=== PATIENT | female | born 2000 | race African-American/Black ===

== ENCOUNTER 2022-06-28 09:58 | Emergency (ER) | payer OTHER, SELFPAY | END 2022-06-28 10:38 | disposition home or self-care (01) | LOC: NAV ERS 09:58 | DX: R19.7 Diarrhea, unspecified (principal) | CPT/HCPCS: 99283 ==

== ENCOUNTER 2024-01-22 15:50 | Emergency (ER) | payer BC | END 2024-01-22 16:24 | disposition home or self-care (01) | LOC: NAV ERS 15:50 | DX: A09 Infectious gastroenteritis and colitis, unspecified (principal) | CPT/HCPCS: 99283 ==

== ENCOUNTER 2025-03-06 03:34 | Emergency (ER) | payer BC, SELFPAY ==
[2025-03-06 04:01] LABS: #Basophils 0.2 thou/uL (0.0-0.2); #Eosinophils 0.1 thou/uL (0.0-0.7); #Lymphocytes 2.3 thou/uL (1.20-3.40); #Monocytes 0.9 thou/uL (0.11-0.59); #Neutrophils 6.7 thou/uL (1.40-6.50); %Basophils 1.6 % (0.0-1.0); %Eosinophils 0.8 % (0.0-10.0); %Lymphocytes 22.5 % (21.0-51.0); %Monocytes 9.0 % (0.0-10.0); %Neutrophils 66.1 % (42.0-75.0); Hematocrit 47.3 % (36.0-47.0); Hemoglobin 16.5 g/dL (12.0-16.0); Mean Corpuscular Hemoglobin 29.3 pg (27.0-31.0); Mean Corpuscular Volume 84.0 fl (78.0-98.0); Platelet Count 277 10x3/uL (130-400); Red Blood Cell (RBC) Count 5.62 mill/uL (4.20-5.40); White Blood Cell (WBC) Count 10.2 10x3/uL (4.8-10.8)
[2025-03-06] MEDS ORDERED: Mag-Al Plus 1200/1200/120 MG (30 mL) UDCUP ONE (04:09)
[2025-03-06] MEDS ORDERED: Lidocaine Viscous Sol 2% 15 ml UD Cup ONE (04:09)
[2025-03-06] MEDS ORDERED: INSULIN REGULAR IN 0.9 % NACL 100 ML ONE (04:11)
[2025-03-06 04:17] LABS: Bicarbonate (HCO3v) 5.8 mmol/L (22.0-28.0); CO2 Tension (PvCO2) 18.6 mmHg (42.0-51.0); Calcium, Ionized 1.07 mmol/L (1.15-1.33); Chloride 114 mmol/L (98-107); Hemoglobin - Calc 15.6 g/dL (12.0-16.0); Potassium 4.4 mmol/L (3.5-5.1); Sodium 126 mmol/L (138-145); T. Carbon Dioxide 6.4 mmol/L (22.0-28.0); vO2 Saturation-calc 91.6 % (60.0-85.0)
[2025-03-06 04:27] LABS: ALT (SGPT) 17 U/L (Less than 34); AST (SGOT) 28 U/L (11-34); Albumin 5.1 g/dL (3.1-4.5); Alkaline Phosphatase 80 U/L (40-110); BUN (Urea Nitrogen) 13 mg/dL (7.0-18.7); Bilirubin, Total 0.4 mg/dL (0.3-1.2); Calc. Creatinine Clearance 0 mL/min (70-130); Calcium 9.0 mg/dL (7.8-10.44); Chloride 101 mmol/L (98-107); Globulin 4.2 g/dL (2.4-3.5); Sodium 134 mmol/L (136-145)
[2025-03-06 04:31] LABS: Carbon Dioxide Less than 16 mmol/L (22-29)
[2025-03-06 04:33] LABS: Glucose 531 mg/dL (70-105); Potassium 5.2 mmol/L (3.5-5.1)
[2025-03-06 04:41] LABS: Bacteria/HPF None Seen HPF (None Seen); CAUTI Indications for Culture Dysuria,urgency,freq; Glucose, Urine (Dipstick) 500 mg/dL (Negative); Leukocyte Trace (Negative); Protein, Urine (Dipstick) 100 mg/dL (Neg-Trace); RBC/HPF None Seen HPF (0-3); Specific Gravity, Urine 1.015 (1.005-1.030); WBC/HPF 21-50 HPF (0-3)
[2025-03-06 04:42] LABS: Pregnancy Test - Urine (BHCG) Negative (Negative); Pregu Control Background? CLEAR/WHITE (CLR/WHITE); Pregu Control Bar Appear? YES (CONTROL BAR); Urine Culture Reflex Yes Yes
[2025-03-06] MEDS ORDERED: Ondansetron PF 4 MG/2 ML Vial ONE (04:51)
[2025-03-06] MEDS ORDERED: cefTRIAXone (ROCEPHIN) 1 GM VIAL ONE (04:51)
== END 2025-03-06 05:05 | disposition short-term general hospital (02) ==
LOC: NAV ERS 03:34
DX: E11.10 Type 2 diabetes mellitus with ketoacidosis without coma (principal); N39.0 Urinary tract infection, site not specified; Z79.4 Long term (current) use of insulin
CPT/HCPCS: 36416; 71045; 80053; 81001; 81025; 82330; 82803; 85025; 87086; 93005; 96365; 96375; 96376; J0696; J1815; J2405; J7030

== ENCOUNTER 2025-04-26 12:57 | Emergency (ER) | payer SELFPAY ==
[2025-04-26] MEDS ORDERED: Ketorolac Tromethamine 30 MG (1 mL) VIAL ONE (13:45)
[2025-04-26] MEDS ORDERED: Ondansetron PF 4 MG/2 ML Vial ONE (13:45)
[2025-04-26 14:36] LABS: ALT (SGPT) 16 U/L (Less than 34); AST (SGOT) 19 U/L (11-34); Albumin 4.5 g/dL (3.1-4.5); Alkaline Phosphatase 66 U/L (40-110); BUN (Urea Nitrogen) 17 mg/dL (7.0-18.7); Bilirubin, Total 0.3 mg/dL (0.3-1.2); Calc. Creatinine Clearance 0 mL/min (70-130); Calcium 8.7 mg/dL (7.8-10.44); Chloride 105 mmol/L (98-107); Globulin 3.8 g/dL (2.4-3.5); Potassium 5.6 mmol/L (3.5-5.1); Sodium 135 mmol/L (136-145)
[2025-04-26 14:39] LABS: Carbon Dioxide Less than 8 mmol/L (22-29); Glucose 454 mg/dL (70-105)
[2025-04-26 14:46] LABS: Hematocrit 43.8 % (36.0-47.0); Hemoglobin 14.9 g/dL (12.0-16.0); Mean Corpuscular Hemoglobin 30.3 pg (27.0-31.0); Mean Corpuscular Volume 88.9 fl (78.0-98.0); Red Blood Cell (RBC) Count 4.93 mill/uL (4.20-5.40); White Blood Cell (WBC) Count 11.3 10x3/uL (4.8-10.8)
[2025-04-26 14:47] LABS: Platelet Adequacy Comment Appears Adequate; Platelet Count 168 10x3/uL (130-400)
[2025-04-26] MEDS ORDERED: Oseltamivir 75 MG CAP ONE (15:02)
[2025-04-26] MEDS ORDERED: INSULIN REGULAR IN 0.9 % NACL 100 ML ONE (15:13)
[2025-04-27] MEDS ORDERED: Ketorolac Tromethamine 30 MG (1 mL) VIAL ONE (20:57)
[2025-04-27] MEDS ORDERED: Ondansetron PF 4 MG/2 ML Vial ONE (20:57)
[2025-04-27] MEDS ORDERED: Dexamethasone 10 MG/ML VIAL ONE (20:57)
== END 2025-04-26 16:17 | disposition short-term general hospital (02) ==
LOC: NAV ERS 12:57
DX: E11.10 Type 2 diabetes mellitus with ketoacidosis without coma (principal); J11.1 Influenza due to unidentified influenza virus with other respiratory manifestations; E11.9 Type 2 diabetes mellitus without complications; Z79.4 Long term (current) use of insulin
CPT/HCPCS: 36416; 71045; 80053; 85025; 87428; 93005; 94760; 96361; 96365; 96375; 96376; J1815; J1885; J2405; J7030